=== PATIENT | female | born 1980 | race Caucasian/White ===

== ENCOUNTER 2025-02-27 12:50 | Emergency (ER) | payer OTHER ==
[~2025-02-27] VITALS: Ht 162.5 cm; Wt 90.7 kg
[~2025-02-27 12:50] MED LIST: ACULAR 3ML 3 ML5 ML OPH; ANAPROX DS550 MG PO; CIPROFLOXACIN500 MG PO; CLARITIN10 MG PO; HYDROCODONE BIT1 T11 PO; LIDEX 0.05% GEL60 GM PO; LOMOTIL 0.025 M1 TA1 PO; NKHM; PREDNICOT20 MG PO; PROVENTIL0.09 MG/AC IH; SEPTRA DS 800 M1 TAB PO; TOBREX OPHTH S2.5 ML OPH; ZANTAC 150150 MG PO; ZITHROMAX Z PA250 MG PO; ZOFRAN4 MG PO
[2025-02-27 13:07] VITALS: BP 124/72
[2025-02-27] MEDS ORDERED: Ondansetron Hydrochloride 4 MG/2 ML VIAL IV ONE ×2 (13:30→17:05)
[2025-02-27] MEDS ORDERED: SODIUM CHLORIDE 0.9% 1,000 ML IV ONE ×2 (13:30→18:10)
[2025-02-27 13:56] LABS: BASO # 0.1 10*3/uL (0.0-0.1); BASO % 0.8 % (0.0-1.0); EOS # 0.1 10*3/uL (0.0-0.4); EOS % 0.7 % (1.0-4.0); MEAN CELL VOLUME 67.7 fl (81.0-99.0); MEAN CORPUSCULAR HGB 18.1 pg (27.0-31.0); MEAN PLATELET VOLUME 10.8 fl (9.6-12.3); MONO # 0.5 10*3/uL (0.1-1.0); MONO % 4.0 % (3.0-9.0); NEUT # 10.1 10*3/uL (2.3-7.9); NEUT % 85.2 % (47.0-73.0); NUCLEATED RED BLOOD CELL 0.0 % (0.0-0.0); NUCLEATED RED BLOOD CELL 0.0 10*3/uL (0.0-0.0); PLATELET COUNT AUTOMATED 308 10*3/uL (130-400); RED CELL DISTRI WIDTH 20.6 % (0-14.5)
[2025-02-27 14:17] LABS: BUN 9 mg/dl (9-23)
[2025-02-27 14:23] LABS: BILIRUBIN Negative (Negative); BLOOD Negative (Negative); CLARITY Cloudy (Clear); COLOR Yellow (Yellow); KETONE 1+ (Negative); LEUKO ESTERASE Negative (Negative); NITRITE Negative (Negative); SPECIFIC GRAVITY 1.025 (1.001-1.030); UROBILINOGEN 1.0 E.U./dl (0.0-1.0)
[2025-02-27 14:24] LABS: PH >= 9.0 (4.5-8.0)
[2025-02-27 14:40] LABS: BACTERIA 2+; MUCOUS 1+; WBC 0-2 wbc/hpf (0-5)
[2025-02-27] MEDS ORDERED: Metoclopramide Hydrochloride 10 MG/2 ML VIAL IV ONE (17:05)
[2025-02-27] MEDS ORDERED: diphenhydrAMINE hydrochloride 50 MG/ML VIAL IV ONE (17:05)
[2025-02-27 17:22] LABS: SGPT/ALT 12.0 U/L (5-49)
[2025-02-27] MEDS ORDERED: Ondansetron4 MG PO (19:01)
[2025-02-27] MEDS ORDERED: REGLAN10 M1 PO (19:01)
[2025-02-27] MEDS ORDERED: OMEPRAZOLE40 MG PO (19:01)
== END 2025-02-27 18:58 | disposition home or self-care (01) ==
LOC: ED 12:50
PROVIDERS: Emergency Medicine
DX: R11.15 Cyclical vomiting syndrome unrelated to migraine (principal); K29.00 Acute gastritis without bleeding; K44.9 Diaphragmatic hernia without obstruction or gangrene; M54.6 Pain in thoracic spine; F12.10 Cannabis abuse, uncomplicated; Z79.899 Other long term (current) drug therapy; Z98.890 Other specified postprocedural states; Z90.49 Acquired absence of other specified parts of digestive tract